=== PATIENT | female | born 1965 | race Caucasian/White ===

== ENCOUNTER → 2019-07-02 16:25 | Outpatient (BNVA) | payer BC, SELFPAY | PROVIDERS: PCP Internal Medicine; Visit Provider Internal Medicine | DX: E03.9 Hypothyroidism, unspecified (principal); E11.9 Type 2 diabetes mellitus without complications | CPT/HCPCS: 83036; 84443 ==

== ENCOUNTER 2021-05-31 07:36 | Outpatient (CLI) | payer BC, SELFPAY ==
[2021-05-31 08:00] VITALS: BP 125/81; PULSE 62; RESP 17; TEMP 36.2; O2SAT 93; BMI 37.3
[2021-05-31 09:16] VITALS: BP 125/77; PULSE 59; RESP 20; TEMP 37.1; O2SAT 94
[2021-05-31 10:18] VITALS: BP 124/85; PULSE 62; RESP 18; TEMP 36.7; O2SAT 97
== END 2021-05-31 07:37 | disposition home or self-care (01) ==
LOC: OPS 07:38
PROVIDERS: PCP Internal Medicine; Visit Provider Nurse Practitioner Family
DX: U07.1 COVID-19 (principal)
CPT/HCPCS: 96365

== ENCOUNTER 2022-02-23 14:31 | Outpatient (CLI) | payer BC, SELFPAY ==
[2022-02-23 15:44] LABS: Estmated Average Glucose 232; Hemoglobin A1C 9.7 % (4.0-6.0); Thyroid Stimulating Hormone 16.36 uIU/mL (0.27-4.20)
== END 2022-02-23 14:32 | disposition home or self-care (01) ==
LOC: LAB 14:33
PROVIDERS: PCP Internal Medicine; Visit Provider Internal Medicine
DX: E03.9 Hypothyroidism, unspecified (principal)
CPT/HCPCS: 83036; 84443

== ENCOUNTER 2024-12-16 08:45 | Outpatient (CLI) | payer BC, SELFPAY ==
--- NOTE | 2024-12-16 08:49 | MM_ITS ---
WS: [id number] BILATERAL 3D TOMOSYNTHESIS DIGITAL SCREENING MAMMOGRAPHY WITH CAD CLINICAL INFORMATION: SCREENING HISTORY: Screening mammogram. No current complaints. COMPARISON: 2017 TECHNIQUE: Bilateral CC and MLO views. FINDINGS: Scattered fibroglandular densities bilaterally. No suspicious focal mass, asymmetry, calcifications, or architectural distortion. No evidence of malignancy. Incidental punctate and lucent centered calcifications. Stable intramammary lymph node upper outer RIGHT breast. MM/MM scr BI tomosynthesis [id number] IMPRESSION: DENSITY: There are scattered areas of fibroglandular density. BI-RADS: 2 - Benign. FOLLOW UP: 1 Year Follow-up Recommend return to annual screening mammography.
== END 2024-12-16 08:46 | disposition home or self-care (01) ==
LOC: RAD 08:45
PROVIDERS: PCP Internal Medicine; Visit Provider Internal Medicine
DX: Z12.31 Encounter for screening mammogram for malignant neoplasm of breast (principal); R92.323 Mammographic fibroglandular density, bilateral breasts; R92.1 Mammographic calcification found on diagnostic imaging of breast; R59.0 Localized enlarged lymph nodes
CPT/HCPCS: 77063; 77067

== ENCOUNTER → 2025-04-22 14:19 | Outpatient (BNVA) | payer BC, SELFPAY | PROVIDERS: PCP Internal Medicine; Visit Provider Nurse Practitioner Women's Health | DX: Z12.4 Encounter for screening for malignant neoplasm of cervix (principal) | CPT/HCPCS: 87624 ==